=== PATIENT | male | born 1975 ===

== ENCOUNTER 2017-08-20 10:45 | Emergency (ER) | payer MEDICAID ==
[2017-08-20 11:01] VITALS: TEMP 97
--- NOTE | 2017-08-20 11:11 | ED PDOC ---
HPI: Chest Pain Chief Complaint (Nursing): Chest Pain Additional Complaint(s): 41yo M with PMHx DM, arrythmia c/o chest pain, SOB starting last night. chest pain, midsternal, pressure, constant, a/w SOB and cough. Denies fever, chills, n /v, abd pain, dysuria, hematuria. No sick contacts. 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) Past Medical History Vital Signs: Last Vital Signs Temp 97 F L 08/20/17 10:58 Pulse 88 08/20/17 11:17 Resp 20 08/20/17 10:58 BP 126/50 L 08/20/17 10:58 Pulse Ox 92 L 08/20/17 13:17 - Medical History PMH: Denies: HIV, Chronic Kidney Disease - Family History Family History: States: Unknown Family Hx - Home Medications Home Medications: Ambulatory Orders Medication Instructions Recorded Aspirin 81 mg PO DAILY #30 tab.chew 08/20/17 Ibuprofen [Motrin Tab] 600 mg PO Q8 PRN #15 tab 08/20/17 - Allergies Allergies/Adverse Reactions: Allergies Allergy/AdvReac Type Severity Reaction Status Date / Time No Known Allergies Allergy Verified 06/25/14 15:23 - Laboratory Results Result Diagrams: 08/20/17 11:37 08/20/17 11:37 - ECG O2 Sat by Pulse Oximetry: 92 Medical Decision Making Medical Decision Making: DDx aflutter, afib, OH, PNA CXR EKG EKG - aflutter CBC, CMP, PT/PTT, Troponin reassessment 1316 aflutter converted to NSR on playground monitor CHADS VASC Score 1 - ASA CBC no leukocytosis Troponin negative CXR no acute pathology d/c home [facility] Disposition - Clinical Impression Clinical Impression: Atrial flutter by electrocardiogram - Disposition Referrals: [facility] [Outside] Disposition Time: 14:43 Condition: STABLE Prescriptions: Aspirin 81 mg PO DAILY #30 tab.chew Ibuprofen [Motrin Tab] 600 mg PO Q8 PRN #15 tab PRN Reason: Pain, Mild (1-3) Forms: [employer] ([place])
[2017-08-20 11:45] LABS: BASO # 0.1 K/uL (0.0-0.2); EOS # 0.3 K/uL (0.0-0.7); EOS % 3.9 % (0.0-4.0); HEMOGLOBIN 15.6 g/dL (12.0-18.0); LYMPH # 1.4 K/uL (1.0-4.3); MEAN CELL VOLUME 86.2 fl (80.0-94.0); MEAN CORPUSCULAR HEMOGLOBIN 28.7 pg (27.0-31.0); MEAN CORPUSCULAR HGB CONC 33.3 g/dL (33.0-37.0); MEAN PLATELET VOLUME 9.6 fl (7.2-11.7); MONO # 0.6 K/uL (0.0-0.8); MONO % 6.5 % (0.0-10.0); NEUT # 6.3 K/uL (1.8-7.0); NEUT % 72.6 % (50.0-75.0); NRBC % 0.8 % (0.0-0.0); RBC 5.43 Mil/uL (4.40-5.90); RED CELL DISTRIBUTION WIDTH 13.4 % (11.5-14.5); WHITE BLOOD COUNT 8.6 K/uL (4.8-10.8)
[2017-08-20 11:50] LABS: INR 1.2 (0.9-1.2); PARTIAL THROMBOPLASTIN TIME 32.5 Seconds (25.6-37.1); PROTHROMBIN TIME 12.8 Seconds (9.8-13.1)
[2017-08-20 11:54] LABS: ALB/GLOB RATIO 1.1 (1.0-2.1); ALBUMIN 4.2 g/dL (3.5-5.0); ALT/SGPT 37 U/L (21-72); AST/SGOT 22 U/L (17-59); BLOOD UREA NITROGEN 13 mg/dl (9-20); CALCIUM 9.7 mg/dL (8.4-10.2); GFR AFRICAN-AMERICAN > 60; GFR NON-AFRICAN AMERICAN > 60
--- NOTE | 2017-08-20 12:12 | RAD ---
HISTORY: chest pain COMPARISON: 06/03/2015 TECHNIQUE: Chest PA and lateral FINDINGS: LUNGS: No active pulmonary disease. PLEURA: No significant pleural effusion identified. No pneumothorax apparent. CARDIOVASCULAR: Normal. OSSEOUS STRUCTURES: No significant abnormalities. VISUALIZED UPPER ABDOMEN: Normal. OTHER FINDINGS: None. IMPRESSION: No active disease.
[2017-08-20 15:54] VITALS: BP 108/54; PULSE 89; RESP 18; O2SAT 94
== END 2017-08-20 15:45 | disposition home or self-care (01) ==
LOC: H.ER 10:45
DX: I48.92 Unspecified atrial flutter (principal); Z79.82 Long term (current) use of aspirin; E11.9 Type 2 diabetes mellitus without complications